=== PATIENT | male | born 2000 | race Hispanic/Latino ===

== ENCOUNTER 2023-08-13 02:06 | Emergency (ER) | payer SELFPAY ==
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
--- NOTE | ~2023-08-13 | CT_ITS ---
EXAMINATION: CT brain wo con DATE: 08/13/2023 03:46 INDICATION: Head injury. TECHNIQUE: Computed tomography (CT) of the head was performed without intravenous contrast. The mA wa s adjusted according to patient size. Iterative reconstruction technique was employed. The dose-lengt h product was 681.00 mGy-cm. COMPARISON: None FINDINGS: There is no intracranial hemorrhage, acute infarction, or abnormal intracranial mass lesion . The ventricles are normal in size. There is a frontal scalp laceration. There is mild mucosal thick ening in the paranasal sinuses. The mastoid air cells are normal. The orbits are normal. IMPRESSION: 1. Normal brain. Reviewed, dictated and finalized at location E. IMPRESSION: 1. Normal brain.
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
[2023-08-13 02:21] VITALS: BP 140/78; PULSE 86; RESP 16; TEMP 36.8; O2SAT 100
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
[2023-08-13] MEDS: TETANUS,DIPHTHERIA,AC PERTUSSIS ADULT (0.5 ML) BOOSTRIX IM (03:50)
[2023-08-13] MEDS: HYDROcodone/acetaminophen (*CRX) 5-325 MG TABLET 1 TAB PO (03:50)
[2023-08-13] MEDS: IBUPROFEN 600 MG TABLET PO (03:50)
[2023-08-13 03:58] VITALS: PULSE 83; RESP 13; O2SAT 100
[2023-08-13 04:30] VITALS: BP 124/68; PULSE 78; RESP 23; O2SAT 100
[2023-08-13 08:20] VITALS: BP 124/65; PULSE 73; RESP 18; O2SAT 97
== END 2023-08-13 08:20 | disposition home or self-care (01) ==
PROVIDERS: Emergency Provider Student in an Organized Health Care Education/Training Program
DX: S02.2XXA Fracture of nasal bones, initial encounter for closed fracture (principal); S01.112A Laceration without foreign body of left eyelid and periocular area, initial encounter; S01.81XA Laceration without foreign body of other part of head, initial encounter; Z23 Encounter for immunization; X99.8XXA Assault by other sharp object, initial encounter
CPT/HCPCS: 12013; 70450; 70486; 71045; 72125; 73110; 73130; 90471; 90715; 99284; A9270